=== PATIENT | female | born 1985 | race African-American/Black ===

== ENCOUNTER 2016-10-23 15:28 | Emergency (ER) | payer OTHER ==
[~2016-10-23] VITALS: Ht 162.6 cm; Wt 55.0 kg
[2016-10-23 16:27] LABS: CLARITY URINE CLOUDY (CLEAR); COLOR URINE YELLOW (YELLOW); GLUCOSE URINE NEGATIVE (NEGATIVE); KETONES URINE NEGATIVE (NEGATIVE); LEUKOCYTE ESTERASE URINE 1+ (NEGATIVE); NITRITE URINE NEGATIVE (NEGATIVE); OCCULT BLOOD URINE 3+ (NEGATIVE); PROTEIN URINE TRACE (NEGATIVE); SPECIFIC GRAVITY URINE 1.021 (1.005-1.030)
[2016-10-23 17:12] LABS: BACTERIA URINE 1+; CALCIUM OXALATE CRYSTALS URINE 1+ /lpf; RBC URINE 50-100 /hpf (0-2); SQUAMOUS EPITHELIAL CELL URINE 1+ /lpf (RARE/1+)
[2016-10-23] MEDS ORDERED: KETOROLAC 60MG/2ML VIAL IM ONE (17:30)
[2016-10-23 18:01] VITALS: BP 121/65
== END 2016-10-23 18:53 | disposition home or self-care (01) ==
LOC: ER 15:56
DX: M25.512 Pain in left shoulder (principal); H92.02 Otalgia, left ear; V59.9XXA Occupant (driver) (passenger) of pick-up truck or van injured in unspecified traffic accident, initial encounter; Y93.89 Activity, other specified; Y99.8 Other external cause status; Y92.410 Unspecified street and highway as the place of occurrence of the external cause
CPT/HCPCS: 81001; 81025; 96372; 99283; J1885

== ENCOUNTER 2016-10-25 10:29 | Emergency (ER) | payer OTHER ==
[~2016-10-25] VITALS: Ht 167.6 cm; Wt 56.0 kg
[2016-10-25] MEDS ORDERED: METOCLOPRAMIDE HCL 10MG TABLET PO ONE (15:30)
[2016-10-25] MEDS ORDERED: KETOROLAC 30MG/ML VIAL IM ONE (15:30)
[2016-10-25 15:40] VITALS: BP 107/71
== END 2016-10-25 16:01 | disposition home or self-care (01) ==
LOC: ER 13:44
DX: S43.402D Unspecified sprain of left shoulder joint, subsequent encounter (principal); S16.1XXD Strain of muscle, fascia and tendon at neck level, subsequent encounter; S39.012D Strain of muscle, fascia and tendon of lower back, subsequent encounter; R51 Headache; V43.92XD Unspecified car occupant injured in collision with other type car in traffic accident, subsequent encounter
CPT/HCPCS: 96372; 99283; J1885; J8597